=== PATIENT | female | born 1950 | race Caucasian/White ===

== ENCOUNTER 2019-06-06 07:53 | Outpatient (CLI) | payer MEDICARE, OTHER, SELFPAY ==
[2019-06-06 08:32] LABS: Basophils Percent Auto 0.5 % (0.2-1.2); Eosinophils Absolute Auto 0.1 K/mm3 (0-0.3); Eosinophils Percent Auto 0.7 % (0-4.4); Hematocrit 45.2 % (37.0-47.0); Hemoglobin 14.8 g/dL (12.0-15.0); Immature Granulocyte Absolute 0.05 K/mm3 (0.00-0.031); Immature Granulocyte Percent A 0.6 % (0-0.5); Lymphocytes Absolute Auto 2.23 K/mm3 (0.9-3.2); Lymphocytes Percent Auto 25.7 % (18.3-44.2); Mean Corpuscular HGB Conc 32.7 g/dl (32-36); Mean Corpuscular Hemoglobin 28.4 pg (26-34); Mean Corpuscular Volume 86.6 fl (80-100); Mean Platelet Volume 9.5 fl (7.4-10.4); Monocytes Absolute Auto 0.6 K/mm3 (0.1-0.6); Monocytes Percent Auto 7.2 % (2.6-8.5); Neutrophils Absolute Auto 5.7 K/mm3 (1.3-6.7); Neutrophils Percent Auto 65.3 % (45.5-73.1); Platelet Count Result 232 k/mm3 (150-375); Red Blood Count 5.22 M/mm3 (4.2-5.4); Red Cell Distribution Width 12.2 % (11.5-14.5); White Blood Count 8.7 K/mm3 (4.5-10.0)
[2019-06-06 08:38] LABS: Hemoglobin A1C 9.9 % (<5.7)
[2019-06-06 08:40] LABS: Alanine Aminotransferase 17 U/L (4-35); Albumin Level 3.9 g/dL (3.5-5.1); Alkaline Phosphatase 86 U/L (38-126); Aspartate Amino Transferase 17 U/L (14-36); Bilirubin,Total 0.5 mg/dL (0.2-1.3); Blood Urea Nitrogen 17 mg/dL (7-17); Calcium 8.9 mg/dL (8.4-10.2); Carbon Dioxide 24 mmol/L (22-30); Chloride 101 mmol/L (98-107); Cholesterol 186 mg/dL (0-200); Estimated Glomerular Filt Rate > 60; Glucose 224 mg/dL (65-105); HDL Direct 58 mg/dL; Potassium 4.1 mmol/L (3.4-5.0); Sodium 134 mmol/L (137-145); Triglycerides 233 mg/dL (<150)
[2019-06-06 08:52] LABS: LDL Cholesterol Direct 94 mg/dL
[2019-06-06 09:50] LABS: Free T4 Free Thyroxine 1.03 ng/mL (0.78-2.19)
[2019-06-06 13:15] LABS: Creatinine Urine 25.4 mg/dL
[2019-06-06 13:44] LABS: Microalbumin Urine Random < 6.0 mg/L (0-16.7)
== END 2019-06-06 07:54 | disposition home or self-care (01) ==
PROVIDERS: PCP Internal Medicine; Visit Provider Internal Medicine
DX: R53.83 Other fatigue (principal); E11.9 Type 2 diabetes mellitus without complications; R79.89 Other specified abnormal findings of blood chemistry
CPT/HCPCS: 36415; 80053; 80061; 82043; 83036; 84439; 84443; 85025

== ENCOUNTER 2020-10-17 07:48 | Outpatient (CLI) | payer MEDICARE, OTHER, SELFPAY ==
--- NOTE | ~2020-10-17 | DEXA_ITS ---
Bone Density Report Name: Ellie Rivera Age: 70 Sex: Female Ethnicity: White Date of : 1950 Indication: osteopenia; height loss; prior fracture; hysterectomy; postmenopausal Referring Provider: Lien Dugan Study: Bone densitometry was performed. Exam Date: October 17, 2020 Accession number: [id number] Bone Density: Region BMD T-score Z-score Classification AP Spine (L1-L4) 0.975 -0.7 1.3 Normal Femoral Neck (Left) 0.645 -1.8 -0.2 Osteopenia Total Hip (Left) 0.882 -0.5 0.9 Normal Total Hip Bilateral Avg 0.874 -0.6 0.8 Normal Femoral Neck (Right) 0.604 -2.2 -0.5 Osteopenia Total Hip (Right) 0.865 -0.6 0.8 Normal World Health Organization criteria for BMD impression classify patients as: Normal (T-score at or above -1.0), Osteopenia (T-score between -1.0 and -2.5), or Osteoporosis (T-score at or below -2.5). 10-year Fracture Risk(1): Major Osteoporotic Fracture 18% Hip Fracture 3.2% Reported Risk Factors: [place] (), Neck BMD=0.604, BMI=34.8, previous fracture (1) FRAX(R) Version 3.08. Fracture probability calculated for an untreated patient. Fracture probability may be lower if the patient has received treatment. Previous Exams: Region Exam Age BMD T-score BMD Change BMD Change Date g/cm2 vs Baseline vs Previous AP Spine(L1-L4) 10/17/2020 70 0.975 -0.7 0.031(3.3%)# 0.051(5.5%)* 04/08/2015 64 0.924 -1.1 -0.020(-2.1%)# -0.020(-2.1%)# 05/11/2008 57 0.944 -0.9 Total Hip(Left) 10/17/2020 70 0.882 -0.5 0.022(2.5%)# 0.020(2.3%) 04/08/2015 64 0.862 -0.7 0.001(0.1%)# 0.001(0.1%)# 05/11/2008 57 0.861 -0.7 Total Hip(Right) 10/17/2020 70 0.865 -0.6 -0.023(-2.6%)# -0.044(-4.8%)* 04/08/2015 64 0.909 -0.3 0.020(2.3%)# 0.020(2.3%)# 05/11/2008 57 0.889 -0.4 *Denotes significance at 95% confidence level, LSC for AP Spine = 0.022 g/cm2, LSC for Total Hip = 0.027 g/cm2 Clinical Information Provided by Patient: Has had a low trauma fracture Has the following medical conditions: Hysterectomy Patient maximum height was 62.5 Menopause Age: 49 No regular weight bearing exercise Does not regularly consume dairy products Onset of menses at age 16 Number of children 1 Impression: The patient has low bone mass, based on the Right Femoral Neck T-score. The patient has an estimated ten-year risk of hip fracture of 3.2% and an estimated ten-year risk of major fracture of 18%, based on
== END 2020-10-17 07:49 | disposition home or self-care (01) ==
LOC: ANHIMG 07:50
PROVIDERS: PCP Internal Medicine; Visit Provider Internal Medicine Endocrinology, Diabetes & Metabolism
DX: M81.0 Age-related osteoporosis without current pathological fracture (principal); E11.65 Type 2 diabetes mellitus with hyperglycemia; M85.852 Other specified disorders of bone density and structure, left thigh; M85.851 Other specified disorders of bone density and structure, right thigh
CPT/HCPCS: 77080

== ENCOUNTER 2020-10-22 07:10 | Outpatient (CLI) | payer MEDICARE, OTHER, SELFPAY ==
[2020-10-22 07:43] LABS: Alanine Aminotransferase 20 U/L (4-35); Albumin Level 4.1 g/dL (3.5-5.1); Alkaline Phosphatase 69 U/L (38-126); Anion Gap 9 mmol/L (8-16); Aspartate Amino Transferase 20 U/L (14-36); Bilirubin,Total 0.5 mg/dL (0.2-1.3); Blood Urea Nitrogen 21 mg/dL (7-17); Calcium 9.2 mg/dL (8.4-10.2); Carbon Dioxide 26 mmol/L (22-30); Chloride 101 mmol/L (98-107); Cholesterol 175 mg/dL (0-200); Estimated Glomerular Filt Rate > 60; Glucose 187 mg/dL (65-110); HDL Direct 60 mg/dL; Potassium 4.7 mmol/L (3.4-5.0); Sodium 136 mmol/L (137-145); Triglycerides 234 mg/dL (<150)
[2020-10-22 07:54] LABS: LDL Cholesterol Direct 66 mg/dL
[2020-10-22 08:17] LABS: Parathyroid Intact 54.6 pg/mL (7.5-53.5)
[2020-10-22 08:41] LABS: Vitamin D 25 Hydroxy 32.4 ng/mL
[2020-10-22 09:20] LABS: Creatinine Urine 59.8 mg/dL
[2020-10-22 13:47] LABS: MALB Creatinine Ratio < 10.0 mg/g (0-30); Microalbumin Urine Random < 6.0 mg/L (0-16.7)
== END 2020-10-22 07:11 | disposition home or self-care (01) ==
LOC: ANHLAB 07:12
PROVIDERS: PCP Internal Medicine; Visit Provider Internal Medicine Endocrinology, Diabetes & Metabolism
DX: E11.65 Type 2 diabetes mellitus with hyperglycemia (principal); E78.1 Pure hyperglyceridemia; M81.0 Age-related osteoporosis without current pathological fracture
CPT/HCPCS: 36415; 80053; 80061; 82043; 82306; 82607; 83970; 84443

== ENCOUNTER 2021-07-18 14:47 | Outpatient (CLI) | payer MEDICARE, OTHER, SELFPAY ==
[2021-07-18 15:30] LABS: Albumin Level 3.9 g/dL (3.5-5.1); Anion Gap 7 mmol/L (8-16); Blood Urea Nitrogen 20 mg/dL (7-17); Calcium 9.2 mg/dL (8.4-10.2); Carbon Dioxide 27 mmol/L (22-30); Chloride 100 mmol/L (98-107); Estimated Glomerular Filt Rate > 60; Glucose 224 mg/dL (65-110); Phosphorus 4.5 mg/dL (2.5-4.5); Potassium 4.4 mmol/L (3.4-5.0); Sodium 134 mmol/L (137-145)
[2021-07-18 15:41] LABS: Parathyroid Intact 37.2 pg/mL (7.5-53.5)
== END 2021-07-18 14:48 | disposition home or self-care (01) ==
PROVIDERS: PCP Internal Medicine; Visit Provider Internal Medicine Endocrinology, Diabetes & Metabolism
DX: R79.89 Other specified abnormal findings of blood chemistry (principal); M81.0 Age-related osteoporosis without current pathological fracture
CPT/HCPCS: 36415; 80069; 82306; 83970

== ENCOUNTER 2021-11-28 14:23 | Outpatient (CLI) | payer MEDICARE, OTHER, SELFPAY ==
[2021-11-28 14:46] LABS: Basophils Percent Auto 0.4 % (0.2-1.2); Eosinophils Absolute Auto 0.1 K/mm3 (0-0.3); Eosinophils Percent Auto 0.9 % (0-4.4); Hematocrit 43.7 % (37.0-47.0); Hemoglobin 14.6 g/dL (12.0-15.0); Immature Granulocyte Absolute 0.04 K/mm3 (0.00-0.031); Immature Granulocyte Percent A 0.4 % (0-0.5); Lymphocytes Absolute Auto 3.92 K/mm3 (0.9-3.2); Mean Corpuscular HGB Conc 33.4 g/dl (32-36); Mean Corpuscular Hemoglobin 28.8 pg (26-34); Mean Corpuscular Volume 86.2 fl (80-100); Mean Platelet Volume 9.2 fl (7.4-10.4); Monocytes Absolute Auto 0.6 K/mm3 (0.1-0.6); Monocytes Percent Auto 6.5 % (2.6-8.5); Neutrophils Absolute Auto 5.1 K/mm3 (1.3-6.7); Neutrophils Percent Auto 51.8 % (45.5-73.1); Platelet Count Result 230 k/mm3 (150-375); Red Blood Count 5.07 M/mm3 (4.2-5.4); Red Cell Distribution Width 12.8 % (11.5-14.5); White Blood Count 9.8 K/mm3 (4.5-10.0)
[2021-11-28 14:58] LABS: Alanine Aminotransferase 23 U/L (6-35); Albumin Level 4.3 g/dL (3.5-5.1); Alkaline Phosphatase 69 U/L (38-126); Anion Gap 11 mmol/L (8-16); Aspartate Amino Transferase 21 U/L (14-36); Bilirubin,Total 0.5 mg/dL (0.2-1.3); Blood Urea Nitrogen 18 mg/dL (7-17); Calcium 9.6 mg/dL (8.4-10.2); Carbon Dioxide 25 mmol/L (22-30); Chloride 101 mmol/L (98-107); Cholesterol 166 mg/dL (0-200); Estimated Glomerular Filt Rate > 60; Glucose 196 mg/dL (65-110); HDL Direct 60 mg/dL; Potassium 4.2 mmol/L (3.4-5.0); Sodium 137 mmol/L (137-145); Triglycerides 336 mg/dL (<150)
[2021-11-28 15:09] LABS: LDL Cholesterol Direct 63 mg/dL
[2021-11-28 15:22] LABS: Vitamin D 25 Hydroxy 23.8 ng/mL
[2021-11-28 16:01] LABS: Folic Acid 15.6 ng/mL (2.76->20)
== END 2021-11-28 14:24 | disposition home or self-care (01) ==
PROVIDERS: PCP Internal Medicine; Visit Provider Internal Medicine
DX: E53.8 Deficiency of other specified B group vitamins (principal); E11.65 Type 2 diabetes mellitus with hyperglycemia; R79.89 Other specified abnormal findings of blood chemistry; R53.83 Other fatigue; B37.3 Candidiasis of vulva and vagina; M81.0 Age-related osteoporosis without current pathological fracture
CPT/HCPCS: 36415; 80053; 80061; 82306; 82607; 82746; 84443; 85025

== ENCOUNTER 2021-11-29 08:06 | Outpatient (CLI) | payer MEDICARE, OTHER, SELFPAY ==
[2021-11-29 09:27] LABS: Creatinine Urine 53.5 mg/dL
[2021-11-29 09:28] LABS: MALB Creatinine Ratio < 11.2 mg/g (0-30); Microalbumin Urine Random < 6.0 mg/L (0-16.7)
== END 2021-11-29 08:07 | disposition home or self-care (01) ==
PROVIDERS: PCP Internal Medicine; Visit Provider Internal Medicine
DX: E53.8 Deficiency of other specified B group vitamins (principal); E11.65 Type 2 diabetes mellitus with hyperglycemia; R79.89 Other specified abnormal findings of blood chemistry; R53.83 Other fatigue
CPT/HCPCS: 82043

== ENCOUNTER 2022-05-16 14:48 | Outpatient (CLI) | payer MEDICARE, OTHER, SELFPAY ==
--- NOTE | ~2022-05-16 | MM_ITS ---
EXAMINATION: MM screening nelson BI w renetta HISTORY: Screening mammogram TECHNIQUE: Craniocaudal and mediolateral oblique 3-D tomosynthesis images were obtained and synthetic 2-D images were generated. CAD analysis was submitted and interpreted. COMPARISON: 02/2018, 04/08/2015 bilateral screening mammogram examinations BREAST PARENCHYMAL COMPOSITION: The breasts are almost entirely fatty. FINDINGS: There is no evidence of suspicious mass, calcification, or architectural distortion to sugg est malignancy in either breast. There has been no suspicious interval change. IMPRESSION: 1. No mammographic evidence of malignancy. 2. Recommend routine screening mammography in one year. BI-RADS Category 1: Negative Reviewed, dictated and finalized at location A. [employer]UPATIONAL
== END 2022-05-16 14:49 | disposition home or self-care (01) ==
LOC: ANHIMG 14:50
PROVIDERS: PCP Internal Medicine; Visit Provider Internal Medicine
DX: Z12.31 Encounter for screening mammogram for malignant neoplasm of breast (principal)
CPT/HCPCS: 77063; 77067

== ENCOUNTER 2022-12-24 06:48 | Outpatient (CLI) | payer MEDICARE, OTHER, SELFPAY ==
[2022-12-24 07:24] LABS: Basophils Percent Auto 0.5 % (0.2-1.2); Eosinophils Absolute Auto 0.1 K/mm3 (0-0.3); Eosinophils Percent Auto 1.2 % (0-4.4); Hematocrit 44.4 % (37.0-47.0); Hemoglobin 14.2 g/dL (12.0-15.0); Immature Granulocyte Absolute 0.04 K/mm3 (0.00-0.031); Immature Granulocyte Percent A 0.5 % (0-0.5); Lymphocytes Absolute Auto 2.92 K/mm3 (0.9-3.2); Lymphocytes Percent Auto 33.1 % (18.3-44.2); Mean Corpuscular Hemoglobin 28.9 pg (26-34); Mean Corpuscular Volume 90.4 fl (80-100); Mean Platelet Volume 9.1 fl (7.4-10.4); Monocytes Absolute Auto 0.6 K/mm3 (0.1-0.6); Monocytes Percent Auto 6.8 % (2.6-8.5); Neutrophils Absolute Auto 5.1 K/mm3 (1.3-6.7); Neutrophils Percent Auto 57.9 % (45.5-73.1); Platelet Count Result 224 k/mm3 (150-375); Red Blood Count 4.91 M/mm3 (4.2-5.4); Red Cell Distribution Width 12.6 % (11.5-14.5); White Blood Count 8.8 K/mm3 (4.5-10.0)
[2022-12-24 07:32] LABS: Alanine Aminotransferase 17 U/L (6-35); Alkaline Phosphatase 67 U/L (38-126); Anion Gap 6 mmol/L (8-16); Aspartate Amino Transferase 19 U/L (14-36); Bilirubin,Total 0.6 mg/dL (0.2-1.3); Blood Urea Nitrogen 23 mg/dL (7-17); Carbon Dioxide 26 mmol/L (22-30); Chloride 102 mmol/L (98-107); Cholesterol 180 mg/dL (0-200); Estimated Glomerular Filt Rate > 60; Glucose 178 mg/dL (65-110); HDL Direct 66 mg/dL; Potassium 4.3 mmol/L (3.4-5.0); Sodium 134 mmol/L (137-145); Triglycerides 241 mg/dL (<150)
[2022-12-24 07:44] LABS: LDL Cholesterol Direct 77 mg/dL
[2022-12-24 08:12] LABS: Vitamin D 25 Hydroxy 25.7 ng/mL
== END 2022-12-24 06:49 | disposition home or self-care (01) ==
PROVIDERS: PCP Internal Medicine; Visit Provider Internal Medicine Endocrinology, Diabetes & Metabolism
DX: E11.65 Type 2 diabetes mellitus with hyperglycemia (principal); E53.8 Deficiency of other specified B group vitamins; E55.9 Vitamin D deficiency, unspecified; E78.1 Pure hyperglyceridemia; E78.5 Hyperlipidemia, unspecified; R53.83 Other fatigue; Z68.34 Body mass index [BMI] 34.0-34.9, adult
CPT/HCPCS: 36415; 80053; 80061; 82306; 82607; 84443; 85025

== ENCOUNTER 2023-01-08 11:22 | Outpatient (CLI) | payer MEDICARE, OTHER, SELFPAY ==
--- NOTE | ~2023-01-08 | XR_ITS ---
EXAMINATION: XR lumbar spine 6V w bending DATE: 01/08/2023 11:58 INDICATION: Unspecified fall, initial encounter. TECHNIQUE: 6 views of lumbar spine including standing views and flexion and extension views were obta ined. COMPARISON: None. FINDINGS: There is 10 degrees levoscoliosis of thoracolumbar spine. There is mild chronic anterior we dging of T11 and L1 vertebral bodies. There is 5 mm anterolisthesis of L4 on L5. There is mildly decr eased disc height at L1-L2, L2-L3, and L3-L4. There is no abnormal motion with flexion or extension. There is multilevel facet joint osteoarthritis, severe bilaterally at L4-L5 and L5-S1. There are brid ging endplate osteophytes at multiple levels in the thoracic spine, consistent with diffuse idiopathi c skeletal hyperostosis (DISH). IMPRESSION: 1. Mild lumbar spondylosis. 2. Thoracolumbar levoscoliosis. 3. Thoracic DISH. Reviewed, dictated and finalized at location E.
--- NOTE | ~2023-01-08 | XR_ITS ---
XR wrist LT min 3V DATE: 01/08/2023 11:58 INDICATION: Fall. Left wrist injury. TECHNIQUE: 4 views COMPARISON: None FINDINGS: Intramedullary pin of the radius. There is old healed fracture deformity of the distal radi al diametaphyseal area and ununited old ulnar styloid process fracture. No recent fracture or dislocation, periosteal reaction or bone destruction is detected. There is osteopenia. IMPRESSION: Old healed fracture of distal radial diametaphysis, with intramedullary fixation pin Old ununited ulnar styloid process fracture Osteopenia Reviewed, dictated and finalized at location A. IMPRESSION: Old healed fracture of distal radial diametaphysis, with intramedul lynsey fixation pin Old ununited ulnar styloid process fracture Osteopenia
== END 2023-01-08 11:23 | disposition home or self-care (01) ==
PROVIDERS: PCP Internal Medicine; Visit Provider Physician Assistant
DX: M43.06 Spondylolysis, lumbar region (principal); M41.85 Other forms of scoliosis, thoracolumbar region; M48.14 Ankylosing hyperostosis [Forestier], thoracic region; W19.XXXA Unspecified fall, initial encounter
CPT/HCPCS: 72114; 73110

== ENCOUNTER 2023-06-13 08:12 | Outpatient (CLI) | payer MEDICARE, OTHER, SELFPAY ==
--- NOTE | ~2023-06-13 | XR_ITS ---
EXAMINATION: XR shoulder RT min 2V INDICATION: Right shoulder pain TECHNIQUE: Four views of the right shoulder are submitted. COMPARISON: None FINDINGS: Normal alignment. No fracture. There is mild glenohumeral and acromioclavicular joint osteo arthritis. Soft tissues are unremarkable. IMPRESSION: 1. No acute osseous abnormality. Reviewed, dictated and finalized at location F.
== END 2023-06-13 08:13 | disposition home or self-care (01) ==
LOC: ANHIMG 08:15
PROVIDERS: PCP Physician Assistant; Visit Provider Physician Assistant
DX: M25.511 Pain in right shoulder (principal)
CPT/HCPCS: 73030

== ENCOUNTER 2023-08-08 08:49 | Outpatient (CLI) | payer MEDICARE, OTHER, SELFPAY ==
--- NOTE | ~2023-08-08 | MR_ITS ---
EXAMINATION: MR shoulder RT wo con DATE: 08/08/2023 15:53 INDICATION: Torn right rotator cuff TECHNIQUE: Magnetic resonance imaging (MRI) of the right shoulder was performed without intravenous c ontrast. Sequences included axial PD-weighted FS FSE, coronal oblique PD-weighted FS FSE, coronal obl ique T2-weighted FS FSE, sagittal PD-weighted FS FSE, and sagittal T1-weighted SE. COMPARISON: None. FINDINGS: Coracoacromial arch: The acromion undersurface is curved in morphology (type II). Small anterior subacromial spur at the a cromial insertion of the normal coracoacromial ligament. Moderate acromioclavicular osteoarthritis. Rotator cuff: Moderate supraspinatus tendinopathy. There is moderate attenuation of the distal 2 cm of the supraspi natus tendon with partial thickness undersurface tear. There is a superimposed very small full-thickn ess tear measuring 3 mm AP and <5 mm medial to lateral along the central aspect of the superior facet footplate. Moderate infraspinatus tendinopathy without tear. The teres minor tendon is normal. Mild to moderate subscapularis tendinopathy without tear. Normal rotator cuff muscle bulk and signal. Biceps tendon, glenoid labrum and glenohumeral cartilage: Mild tendinopathy of the intra-articular portion of the long head biceps tendon without discrete tear . There is a superior, anterior to posterior tear of the glenoid labrum (SLAP tear) involving the 12: 00-9:00 position of the posterosuperior glenoid labrum. Glenohumeral cartilage is normal. Fluid: Physiologic amount of fluid in the glenohumeral joint and biceps tendon sheath. No loose osteochondr al bodies. Small amount of fluid in the subacromial/subdeltoid bursa consistent with mild bursitis. Bones: Normal marrow signal with no edema, fracture or abnormal marrow replacing process. IMPRESSION: 1. Moderate supraspinatus tendinopathy with small moderate severity partial-thickness articular sided tear and superimposed very small full-thickness component at the superior facet footplate. 2. Mild to moderate subscapularis and mild infraspinatus tendinopathy without tear. 3. SLAP tear of the superior to posterosuperior glenoid labrum. 4. Mild subacromial/subdeltoid bursitis. 5. Moderate acromioclavicular osteoarthritis. 6. Mild tendinopathy without tear of the intra-articular long head biceps tendon. Reviewed, dictated and finalized at location A. IMPRESSION: 1. Moderate supraspinatus tendinopathy with small moderate severity partial-thi ckness articular sided tear and superimposed very small full-thickness componen t at the superior facet footplate. 2. Mild to moderate subscapularis and mild infraspinatus tendinopathy without t ear. 3. SLAP tear of the superior to posterosuperior glenoid labrum. 4. Mild subacromial/subdeltoid bursitis. 5. Moderate acromioclavicular osteoarthritis. 6. Mild tendinopathy without tear of the intra-articular long head biceps tendo n.
== END 2023-08-08 08:50 | disposition home or self-care (01) ==
PROVIDERS: PCP Physician Assistant; Visit Provider Specialist
DX: M75.101 Unspecified rotator cuff tear or rupture of right shoulder, not specified as traumatic (principal); M75.51 Bursitis of right shoulder; M19.011 Primary osteoarthritis, right shoulder
CPT/HCPCS: 73221

== ENCOUNTER 2023-10-08 15:00 | Outpatient (RCR) | payer MEDICARE, OTHER, SELFPAY ==
[2023-09-09 11:00] VITALS: BP_SYST 95
--- NOTE | 2023-09-09 11:56 | OPREHPOC ---
Outpatient Therapy Plan of Care This is a Multidisciplinary Plan of Care that may contain components documented by all disciplines (PT, OT, and ST.) PT Problem 1 PT Problem #1 Knowledge Deficit PT Goal 1 Goal *indep with HEP Target Visit 8 PT Problem 2 PT Problem #2 Pain PT Goal 1 Goal 1* pt report pain rating of 7/10 at worst 2* Quick DASH self assessment of 46% limitation in activity level 3* pt report with sleeping, awaken 2x/night due to pain Target Visit 8 PT Problem 3 PT Problem #3 Impaired Strength PT Goal 1 Goal increase strength of R shoulder, to improve use of R arm with self care and work tasks: in standing, 5 reps: 1* flexion to 145' 2* abduction to 120' 3* IR- fingers to bra strap Target Visit 8
--- NOTE | 2023-09-09 11:56 | PTOPEVAL1 ---
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 Her Quick DASH self assessment is 55% limitation in activity level. Sleep and use of her dominant arm are limited due to pain. With the evaluation: R shoulder ROM and strength are decreased, with abduction and extension most painful motion. spasms and tenderness with palpation over anterior and lateral shoulder; posture with rounded shoulders. Skilled PT services are indicated for modalities to decrease pain and spasms, therapeutic exercises to increase shoulder ROM and strength, with eduation for HEP and posture correction. Plan of Care Interventions Electrical Stimulation,Hot Pack/Cold Pack,Manual Therapy,Neuro Re-education,Patient Education,Therapeutic Activities,Therapeutic Exercise,Ultrasound,Other Other Interventions shirley, NIMISHAT
--- NOTE | 2023-09-25 14:48 | PCPTNOTE ---
Called and canceled, reason unknown. AKS
--- NOTE | 2023-10-03 12:54 | PCPTNOTE ---
Pt canceled due to illness.
--- NOTE | 2023-10-10 15:07 | PCPTNOTE ---
Pt canceled appt due to be stuck at the [facility] office.
--- NOTE | 2023-10-14 15:53 | PCPTNOTE ---
pt did not show for today's reevaluation appt. I called her---stated she thought it was tomorrow. She has 3 more visits left, she will call and reschedule.
--- NOTE | 2023-10-31 13:29 | PTOPDC ---
Assessment and note entered by Florentin Cheung Discharge Report Assessment Status Discharge - Pt Not Present Diagnosis R rotator cuff tear Onset March 2023 Subjective Information pt was not seen this date Assessment PT Clinical Summary Ellie received 4 PT sessions, from September 08 to October 07. She did not show for one and called/canceled 3 appointments. Discharge PT services. The goals were not addressed. Plan of Care PT Services Indicated No
== END 2023-10-31 16:54 | disposition home or self-care (01) ==
LOC: ANHPT 15:00
PROVIDERS: PCP Physician Assistant; Visit Provider Specialist
DX: M75.101 Unspecified rotator cuff tear or rupture of right shoulder, not specified as traumatic (principal)
CPT/HCPCS: 97014; 97110; 97140; 97161; 97530; G0283

== ENCOUNTER 2024-02-20 07:00 | Outpatient (CLI) | payer MEDICARE, OTHER, SELFPAY ==
[2024-02-20 08:21] LABS: Alanine Aminotransferase 13 U/L (6-35); Albumin Level 4.2 g/dL (3.5-5.1); Alkaline Phosphatase 70 U/L (38-126); Anion Gap 8 mmol/L (4-12); Aspartate Amino Transferase 19 U/L (14-36); Bilirubin,Total 0.8 mg/dL (0.2-1.3); Blood Urea Nitrogen 23 mg/dL (7-17); Calcium 8.9 mg/dL (8.4-10.2); Carbon Dioxide 26 mmol/L (22-30); Chloride 102 mmol/L (98-107); Cholesterol 192 mg/dL (0-200); Estimated Glomerular Filt Rate > 60; Glucose 146 mg/dL (65-110); HDL Direct 69 mg/dL; Potassium 4.5 mmol/L (3.4-5.0); Sodium 136 mmol/L (137-145); Triglycerides 139 mg/dL (<150)
[2024-02-20 08:33] LABS: LDL Cholesterol Direct 82 mg/dL
[2024-02-20 09:48] LABS: Creatinine Urine 58.5 mg/dL
[2024-02-20 10:02] LABS: MALB Creatinine Ratio < 10.3 mg/g (0-30); Microalbumin Urine Random < 6.0 mg/L (0-16.7)
[2024-02-20 10:03] LABS: Free T4 Free Thyroxine 1.28 ng/dL (0.78-2.19); Vitamin D 25 Hydroxy 25.6 ng/mL
== END 2024-02-20 07:01 | disposition home or self-care (01) ==
PROVIDERS: PCP Nurse Practitioner; Visit Provider Nurse Practitioner Family
DX: E11.65 Type 2 diabetes mellitus with hyperglycemia (principal); E53.8 Deficiency of other specified B group vitamins; E55.9 Vitamin D deficiency, unspecified; E78.1 Pure hyperglyceridemia; E78.5 Hyperlipidemia, unspecified
CPT/HCPCS: 36415; 80053; 80061; 82043; 82306; 82607; 84439; 84443

== ENCOUNTER 2024-03-30 13:30 | Outpatient (RCR) | payer MEDICARE, OTHER, SELFPAY ==
[2024-02-20 09:55] VITALS: BP_SYST 95
--- NOTE | 2024-02-20 10:48 | OPREHPOC ---
Outpatient Therapy Plan of Care This is a Multidisciplinary Plan of Care that may contain components documented by all disciplines (PT, OT, and ST.) PT Problem 1 PT Problem #1 Knowledge Deficit PT Goal 1 Goal / Goal Update *indep with HEP Target Visit 10 PT Goal 2 Goal / Goal Update * correct position of shoulder with exercises Target Visit 10 PT Problem 2 PT Problem #2 Pain PT Goal 1 Goal / Goal Update * pain rating at worst of 2/10 with increased activity Target Visit 10 PT Goal 2 Goal / Goal Update * pt report sleeping 5 hours/time Target Visit 10 PT Problem 3 PT Problem #3 Impaired Range of Motion PT Goal 1 Goal / Goal Update increase R shoulder ROM to improve use of R arm for home and self care tasks: 1* flexion 150' 2* abduction 130' 3* IR- reach behind back, palm to waist Target Visit 10 PT Problem 4 PT Problem #4 Impaired Strength PT Goal 1 Goal / Goal Update progress strengthening per dr orders: increase R shoulder strength for return to full work and home tasks: perform in standing 5 reps: 1* flexion to 90' with 3# hand wt 2* abduction to 90' with 2# hand wt 3* elbow flexion/extension with 5# hand wt Target Visit 10
--- NOTE | 2024-02-20 10:48 | PTOPEVAL1 ---
Assessment and note entered by Chasidy Drake, PT Evaluation Information Assessment Status Evaluation Diagnosis massive R rotator cuff repair ICD-10 Condition Codes (PT) M25.511,Weakness R53.1,Z47.89 Onset 01-06-24 Subjective Information after surgery, used sling, now only PRN use when in public; saw yesterday, he was pleased with her shoulder; dr told her light lifting/use of R arm- coffee cup only with R arm; R hand dominant; currently not working; works at hospital, in cardiology doing stress tests--light lifting; Reported Pain Level Pain Score Self Report Additional Pain Score Comments pain range the past few days 0-3/10; ache in anterior shoulder and humerus increase pain: using arm with light home tasks decrease pain: rest arm, support arm, biofreeze, aleve PRN not using ice sleeping -2-4 hours at time; tends to sleep on her L side with support to R arm at her trunk; and head of bed elevated Assessment PT Clinical Summary Ellie is s/p R massive rotator cuff repair on 01-05. She is R hand dominant. 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 Quick DASH rating of 48% limitation in activity level. Her PT order is -2-26 for PROM; she saw the yesterday and he was pleased with her shoulder and told her to start doing more in therapy. But, she did not have an updated order. Will contact dr office to clarify protocol for treatment. With the evaluation: she is doing well with her active and PROM of R shoulder; tolerated the supine stretching and did not report any pain at end of session. Skilled PT services are indicated for modalities PRN for pain control, therapeutic exercises to increase R shoulder ROM and strength per protocol/orders. Plan of Care Interventions Electrical Stimulation,Hot Pack/Cold Pack,Manual Therapy,Neuro Re-education,Patient Education,Therapeutic Activities,Therapeutic Exercise,Ultrasound,Other Other Interventions taping PT Services Indicated Yes Treatment Frequency and 1-2x/wk for 10 visits Duration These treatments will address the objective and functional deficits as defined above. The patient will be advanced safely and appropriately in order for the patient to progress towards his/her prior level of function. Additional exercises will be introduced and as well as a comprehensive home exercise program upon discharge, if needed, ?to ensure carryover of functional gains achieved in the clinic. This treatment plan has been reviewed and agreement upon by the patient.
--- NOTE | 2024-02-20 14:17 | PCPTNOTE ---
faxed request to Dr Jean, to clarify pt's PT protocol. Her order is dated 01-26-24 for PROM. She reports seeing the dr yesterday, but did not get a new order for PT.
--- NOTE | 2024-02-27 15:49 | PCPTNOTE ---
received verbal orders per phone: progression of shoulder strengthening with therapy as tolerated; no limitations in activity/ROM. Faxed order to for signature of this.
--- NOTE | 2024-03-13 15:53 | PCPTNOTE ---
pt called and canceled due to illness.
--- NOTE | 2024-03-19 15:11 | PCPTNOTE ---
pt did not show for today's appt. Called her and she was not feeling well, and slept through her appt time. Rescheduled reeval for Mar 30. She is to continue with her exercises at home.
--- NOTE | 2024-03-30 14:13 | PTOPDC ---
Assessment and note entered by Chasidy Drake, PT Assessment Status Discharge Diagnosis massive R rotator cuff repair ICD-10 Condition Codes (PT) Pain in right shoulder M25.511,Weakness R53.1, Encounter for other orthopedic aftercare Z47.89 Onset 01-06-24 Subjective Information have gone back to work; doing more and sleeping is better; doing all of the exercises at home; only thing that she is not doing is heavy lifting-- and family assist; feel like ready to be done with therapy, will keep up the exercises at home. Return to the dr Apr 20. Reported Pain Level Pain Score Self Report Additional Pain Score Comments pain range in the past week 0-2/10; decrease pain: pendulum exercises am able to sleep 4-5 hours/time Assessment PT Clinical Summary Ellie has received 8 PT sessions. Compared to the initial evaluation, she has improved in all areas: now have: pain rating of 0 -2/10; self assessment Quick DASH rating of 23% limitation in activity level; reported sleeping tolerance of 4-5 hours at a time; has returned to work; Active ROM in standing: R shoulder flexion 140', abduction 145', IR- reach behind back, fingers to sacrum; ER- reaching to back of head, fingers to cervical spine; Strength in standing R UE x 5 reps: flexion to 90' with 3# hand wt; abduction to 80' with 2# hand wt elbow flexion/extension 5# hand weight. Education completed for HEP and posture. The goals were partially met. Discharge PT. She is to continue with her HEP and monitor her pain with more activity. Plan of Care PT Services Indicated No
== END 2024-03-30 15:28 | disposition home or self-care (01) ==
LOC: ANHPT 13:30
PROVIDERS: PCP Nurse Practitioner; Visit Provider Physical Therapist
DX: M25.511 Pain in right shoulder (principal); R53.1 Weakness; Z47.89 Encounter for other orthopedic aftercare
CPT/HCPCS: 97110; 97161; 97530

== ENCOUNTER 2025-01-19 06:55 | Outpatient (CLI) | payer MEDICARE, OTHER, SELFPAY ==
[2025-01-19 08:53] LABS: Alanine Aminotransferase 20 U/L (6-35); Albumin Level 4.6 g/dL (3.5-5.1); Alkaline Phosphatase 56 U/L (38-126); Anion Gap 13 mmol/L (4-12); Aspartate Amino Transferase 28 U/L (14-36); Bilirubin,Total 0.7 mg/dL (0.2-1.3); Calcium 9.6 mg/dL (8.4-10.2); Carbon Dioxide 19 mmol/L (22-30); Chloride 105 mmol/L (98-107); Cholesterol 127 mg/dL (0-200); Glucose 155 mg/dL (65-110); HDL Direct 59 mg/dL; Sodium 137 mmol/L (137-145); Total Protein 7.8 g/dL (6.3-8.2); Triglycerides 194 mg/dL (<150)
[2025-01-19 09:08] LABS: Blood Urea Nitrogen 30 mg/dL (7-17); Estimated Glomerular Filt Rate 38; Potassium 4.2 mmol/L (3.4-5.0)
[2025-01-19 09:31] LABS: Thyroid Stimulating Hormone 2.560 uIU/mL (0.465-4.680)
[2025-01-19 09:51] LABS: Vitamin B12 260.0 pg/mL (239-931)
[2025-01-19 10:08] LABS: MALB Creatinine Ratio 289.3 mg/g (0-30)
== END 2025-01-19 06:56 | disposition home or self-care (01) ==
PROVIDERS: PCP Internal Medicine; Visit Provider Internal Medicine Endocrinology, Diabetes & Metabolism
DX: E78.1 Pure hyperglyceridemia (principal); E11.65 Type 2 diabetes mellitus with hyperglycemia; E78.5 Hyperlipidemia, unspecified; E53.8 Deficiency of other specified B group vitamins; E55.9 Vitamin D deficiency, unspecified; M81.0 Age-related osteoporosis without current pathological fracture
CPT/HCPCS: 36415; 80053; 80061; 82043; 82306; 82607; 84443

== ENCOUNTER 2025-01-21 09:55 | Outpatient (CLI) | payer MEDICARE, OTHER, SELFPAY ==
--- OUTSIDE RECORDS SUMMARY | 2002-03-06 09:15 | XMS_ITS | Continuity of Care Document ---
Author Organization [facility] Address [address] [facility], [place] [address] [place] [address] Phone Care Team Providers Care Food Selector Name Role Phone Chirag Penny Unavailable Unavailable Advance Directives Directive Yes / No Effective Date File Name No Information Encounters Encounter Description Practice Location Reason(s) For Visit Diagnoses Date Provider Providers Copied on Encounter [facility], [address], [place], [place], [id number], [place] tel:[phone] [facility] No Information Dec-2 0-200 2 Doisy Edward. [address] , [address], [place], [address], [place]. tel:[phone] Family History Family Member Type Diagnosis Age At Onset No Information Payers Payer name Insurance type Covered libertarian ID Authoriza tion(s) No Information Social History Type Description Quantity Date Captured Comments Sex Female Smoking Status No Information Chief Complaint And Reason For Visit No Information Reason For Referral Reason For Referral No Information History Of Present Illness Encounter Date Complaint History Of Prese nt Illness No Information Functional Status Date Functional Assessmen t No Information Instructions Date Instruction Additional Infor mation No Information Assessments Type Assessment Date No Information Patient Care Teams Name Effective Dates (start - stop) Status Members No Information
--- NOTE | ~2025-01-21 | DEXA_ITS ---
Bone Density Report Name: JESICA WORKMAN Age: 74 Sex: Female Ethnicity: White Date of : 1950 Indication: postmenopausal; screening for osteoporosis; prior fracture; hysterectomy; Referring Provider: SANDEEP MONTENEGRO Study: Bone densitometry was performed. Exam Date: January 21, 2025 Accession number: [id number] Bone Density: Region BMD T-score Z-score Classification AP Spine(L1-L4) 1.039 -0.1 2.2 Normal Femoral Neck (Left) 0.609 -2.2 -0.2 Osteopenia Total Hip (Left) 0.871 -0.6 1.0 Normal Femoral Neck (Right) 0.601 -2.2 -0.3 Osteopenia Total Hip (Right) 0.819 -1.0 0.6 Normal Total Hip Mean 0.845 -0.8 0.8 Normal World Health Organization criteria for BMD impression classify patients as: Normal (T-score at or above -1.0), Osteopenia (T-score between -1.0 and -2.5), or Osteoporosis (T-score at or below -2.5). 10-year Fracture Risk(1): Major Osteoporotic Fracture 20% Hip Fracture 4.3% Reported Risk Factors: [place] (), Neck BMD=0.609, BMI=30.5, previous fracture (1) FRAX(R) Version 3.08. Fracture probability calculated for an untreated patient. Fracture probability may be lower if the patient has received treatment. Previous Exams: Region Exam Age BMD T-score BMD Change BMD Change Date g/cm2 vs Baseline vs Previous AP Spine (L1-L4) 01/21/2025 74 1.039 -0.1 0.114 (12.3%)* 0.064 (6.5%)* 10/17/2020 70 0.975 -0.7 0.051 (5.5%)* 0.051 (5.5%)* 04/08/2015 64 0.924 -1.1 Total Hip(Left) 01/21/2025 74 0.871 -0.6 0.009 (1.0%) -0.011 (-1.3%) 10/17/2020 70 0.882 -0.5 0.020 (2.3%) 0.020 (2.3%) 04/08/2015 64 0.862 -0.7 Total Hip(Right) 01/21/2025 74 0.819 -1.0 -0.090 (-9.9%) -0.046 (-5.4%) 10/17/2020 70 0.865 -0.6 -0.044 (-4.8%) -0.044 (-4.8%) 04/08/2015 64 0.909 -0.3 *Denotes significance at 95% confidence level, LSC for AP Spine = 0.022 g/cm2, LSC for Total Hip = 0.027 g/cm2 Clinical Information Provided by Patient: Has had a low trauma fracture Has used the following medications: Vitamin D Has the following medical conditions: Hysterectomy Patient maximum height was 62 Menopause Age: 49 No regular weight bearing exercise Drinks caffeinated beverages Onset of menses at age 14 Number of children 1 Missed period for more than 6 months in a row Impression: The patient has low bone mass, based on the Left Femoral Neck T-score. The patient has an estimated ten-year risk of hip fracture of 4.3% and an estimated ten-year risk of major fracture of 20%, based on the WHO FRAX algorithm. The patient has risk factors, including: previous fracture. The BMD for the Total Hip(Right) decreased, changing by -5.4% since the last DXA exam. Discussion: BONE DENSITY IS LOW AT ONE OR MORE SKELETAL SITES. THE PATIENT'S BMD AND CLINICAL RISK FACTORS CONTRIBUTE TO THIS PATIENT'S HIGH RISK OF FRACTURE. This patient's lowest T-score is low at one or more skeletal sites. It meets the World Health Organization's (WHO) criteria for ?low bone mass? (T-score between -1.0 and -2.5). The patient's 10-year risk of hip fracture and 10 year risk of a major osteoporotic fracture as calculated by FRAX exceeds the threshold where pharmacological therapy is recommended by the National Osteoporosis Foundation (NOF). However, all treatment decisions require clinical judgment and consideration of individual patient factors, including patient preferences, comorbidities, previous drug use, risk factors not captured in the FRAX model (e.g., frailty, falls, vitamin D deficiency, increased bone turnover, interval significant decline in bone density) and possible under or overestimation of fracture risk by FRAX. The patient should follow a healthful lifestyle (good nutrition with adequate calcium and vitamin D, and appropriate weight-bearing exercise). Follow-Up: Consider a repeat BMD and Vertebral Fracture Assessment (VFA) exam in 2 years or sooner if medically necessary, to reassess this patient's status. Reported by: GUILLAUME on 01/21/2025 10:45:00 AM. Reviewed, dictated and finalized at location A.
== END 2025-01-21 09:56 | disposition home or self-care (01) ==
LOC: ANHFOHIMG 09:58
PROVIDERS: PCP Internal Medicine; Visit Provider Internal Medicine Endocrinology, Diabetes & Metabolism
DX: M85.89 Other specified disorders of bone density and structure, multiple sites (principal); Z78.0 Asymptomatic menopausal state; M81.0 Age-related osteoporosis without current pathological fracture
CPT/HCPCS: 77080

== ENCOUNTER 2025-01-27 00:06 | Day surgery (SDC) | payer MEDICARE, OTHER, SELFPAY ==
[2025-01-15 14:08] VITALS: BMI 32.1
[2025-01-27 06:29] VITALS: BP 96/59; PULSE 122; RESP 18; TEMP 36.1; O2SAT 98
[2025-01-27] MEDS: LACTATED RINGERS 1,000 ML 150 ML IV CONT (06:39)
--- NOTE | 2025-01-27 06:54 | WPDANESEPPF ---
Anes - Initial Pre Proc Eval Procedure: Operation Date: 01/27/25 07:30 Proposed Procedures p Screening Colonoscopy - Oswald Ga MD Date/Time: 01/27/25 06:54 Surgeon: Oswald Ga MD Pre Op Diagnosis: Personal history of colon polyps, unspecified Patient Data Age: 74 Gender: F Height: 1.56 m Weight: 75.7 kg Last Vital Signs Temp 36.1 C L 01/27/25 06:29 Pulse 122 H 01/27/25 06:29 Resp 18 01/27/25 06:29 BP 96/59 L 01/27/25 06:29 Pulse Ox 98 01/27/25 06:29 O2 Del Method Room Air 01/27/25 06:29 Allergies Allergy/AdvReac Type Severity Reaction Status Date / Time Penicillins Allergy Unknown Swelling Verified 01/27/25 06:26 Sulfa (Sulfonamide Allergy Unknown Swelling Verified 01/27/25 06:26 Antibiotics) sulfamerazine Allergy Unknown SWELLING Verified 01/27/25 06:26 Home Medications ?Medication ?Instructions ?Recorded ?Confirmed ?Type blood-glucose meter (Accu-Chek #1 ea 07/21/19 01/21/25 Rx Khadra Plus Meter) lancets (Accu-Chek Multiclix #100 ea 11/09/19 01/21/25 Rx Lancet) blood sugar diagnostic (Accu-Chek #100 ea 02/10/20 01/21/25 Rx Khadra Plus test strips) vitamin B complex (B 1 tablet PO DAILY #90 tabs 05/09/21 01/21/25 Rx Complex-Vitamin B12 tablet) calcium ER 600 mg (as carb,cit)-D3 1 tablet PO BIDWMEAL 90 days #180 11/30/21 01/21/25 Rx 12.5 mcg (500 unit) tablet, tabs ext.rel (Citracal-D3 Slow Release) tramadol 50 mg tablet 50 mg PO BID PRN pain #60 tabs 06/17/23 01/21/25 Rx duloxetine 60 mg capsule,delayed 60 mg PO DAILY #90 caps 04/20/24 01/21/25 Rx release glucagon 3 mg/actuation nasal 3 mg intranasal ONCE PRN 04/20/24 01/21/25 Rx spray (Baqsimi) hypoglycemia #1 ea alendronate 70 mg tablet (Fosamax) 70 mg PO WEEKLY #14 tabs 08/26/24 01/21/25 Rx ondansetron 4 mg disintegrating 4 mg PO Q6H PRN nausea and 01/15/25 01/21/25 Rx tablet vomiting #4 tabs blood-glucose sensor (Dexcom G7 #10 ea 01/21/25 01/21/25 Rx Sensor device) dapagliflozin propanediol 10 mg 10 mg PO DAILY #90 tabs 01/21/25 01/27/25 Rx tablet (Farxiga) glimepiride 4 mg tablet 4 mg PO DAILY PRN for big 01/21/25 01/21/25 Rx carbohydrate meal #90 tabs icosapent ethyl 1 gram capsule 2 g (2 x 1 gram) PO BID #360 caps 01/21/25 01/21/25 Rx (Vascepa) lisinopril 20 mg tablet 20 mg PO DAILY #90 tabs 01/21/25 01/27/25 Rx mecobalamin (vitamin B12) 5,000 5,000 mcg PO DAILY #90 tabs 01/21/25 01/21/25 Rx mcg chewable tablet metformin 1,000 mg tablet 1,000 mg PO DAILY #90 tabs 01/21/25 01/27/25 Rx rosuvastatin 40 mg tablet 40 mg PO DAILY #90 tabs 01/21/25 01/21/25 Rx tirzepatide 10 mg/0.5 mL 10 mg (0.5 mL) subcut WEEKLY #6 mL 01/21/25 01/21/25 Rx subcutaneous pen injector (Mounjaro) Laboratory Tests 01/27/25 06:35 POC Capillary Glucose 173 H mg/dl (65-105) Patient hx anesthesia problems: none Family hx anesthesia problems: none Results Review: All pre-operative results and documents have been reviewed as part of the pre-operative evaluation. [facility]LY [facility] Past Medical History Medical History Osteopenia after menopause Vitamin D deficiency Vitamin B12 deficiency Type 2 diabetes mellitus with hyperglycemia, without long-term current use of insulin BMI over 35 Hypertriglyceridemia Uncontrolled type 2 diabetes mellitus with hyperglycemia Obesity Diabetes Depression Surgical History Surgical History History of shoulder surgery H/O: hysterectomy Family History Family History Mother Diabetes mellitus Family history of chronic obstructive pulmonary disease Family history of congestive heart failure Hypertension Family history of diabetes mellitus in first degree relative Sibling Diabetes mellitus Hypertension Patient's sister is in good health Patient's brother is , Onset Age: 29 Family history of kidney disease Family history of diabetes mellitus in first degree relative Family history of coronary artery disease Father Family history of malignant neoplasm Family history of kidney disease, Onset Age: 55 Other Alcoholism Arthritis CHF (congestive heart failure), NYHA class I COPD (chronic obstructive pulmonary disease) Cancer Cerebrovascular accident Glaucoma Lung disease Osteoporosis Renal failure SOB (shortness of breath) Social History Social History Smoking status: Never smoker Second hand tobacco smoke exposure: Yes Smoking end date: 03/18/71 Alcohol intake: never Substance use type: does not use Lack of Transportation: No Lack of Food: Never True Current Housing: I Have Housing Concerned About Future Housing: No Difficulty Paying Gas/Electric Bills: No Difficulty Paying for Meds: No Currently Unemployed: No Education: Trade/Vocational Certificate Difficulty w/ Childcare or Family Care: No Living arrangements: with family Anes - Eval Final PreProcedure Day of Procedure 01/27/25 06:54 Patient weight: obese Heart: regular rate and rhythm Lungs: clear to auscultation Airway: Mallampati scale class II Neurological: alert and oriented Last oral intake: >/= 8 hours ASA classification: III Emergent: no Anesthetic plan: proceed Anesthesia type and monitoring: general GIVS and standard monitoring Results Review: All pre-operative results and documents have been reviewed as part of the pre-operative evaluation. Informed Consent: The patient's anesthetic plan and its attendant risks and benefits were discussed with the patient/family/POA. Questions were solicited and answers provided to the satisfaction of the patient/family/POA.
--- NOTE | 2025-01-27 07:30 | PM.IMHP ---
H&P: HPI History of Present Illness Date/Time: 01/27/25 07:30 Chief Complaint: History of colon polyps Narrative: The patient has a history of colonic polyps, the last colonoscopy was 5 years ago. Years ago she had a large polyp that needed special advanced resection at [place]. Review of Systems Review of Systems: All systems reviewed & are unremarkable except as noted in HPI and below PMFSH Past Medical History Medical History Osteopenia after menopause Vitamin D deficiency Vitamin B12 deficiency Type 2 diabetes mellitus with hyperglycemia, without long-term current use of insulin BMI over 35 Hypertriglyceridemia Uncontrolled type 2 diabetes mellitus with hyperglycemia Obesity Diabetes Depression Surgical History Surgical History History of shoulder surgery H/O: hysterectomy Family History Family History Mother Diabetes mellitus Family history of chronic obstructive pulmonary disease Family history of congestive heart failure Hypertension Family history of diabetes mellitus in first degree relative Sibling Diabetes mellitus Hypertension Patient's sister is in good health Patient's brother is , Onset Age: 29 Family history of kidney disease Family history of diabetes mellitus in first degree relative Family history of coronary artery disease Father Family history of malignant neoplasm Family history of kidney disease, Onset Age: 55 Other Alcoholism Arthritis CHF (congestive heart failure), NYHA class I COPD (chronic obstructive pulmonary disease) Cancer Cerebrovascular accident Glaucoma Lung disease Osteoporosis Renal failure SOB (shortness of breath) Social History Social History Smoking status: Never smoker Second hand tobacco smoke exposure: Yes Smoking end date: 03/18/71 Alcohol intake: never Substance use type: does not use Lack of Transportation: No Lack of Food: Never True Current Housing: I Have Housing Concerned About Future Housing: No Difficulty Paying Gas/Electric Bills: No Difficulty Paying for Meds: No Currently Unemployed: No Education: Trade/Vocational Certificate Difficulty w/ Childcare or Family Care: No Living arrangements: with family Meds Home Medications and Allergies Home Medications ?Medication ?Instructions ?Recorded ?Confirmed ?Type blood-glucose meter (Accu-Chek #1 ea 07/21/19 01/21/25 Rx Khadra Plus Meter) lancets (Accu-Chek Multiclix #100 ea 11/09/19 01/21/25 Rx Lancet) blood sugar diagnostic (Accu-Chek #100 ea 02/10/20 01/21/25 Rx Kahdra Plus test strips) vitamin B complex (B 1 tablet PO DAILY #90 tabs 05/09/21 01/21/25 Rx Complex-Vitamin B12 tablet) calcium ER 600 mg (as carb,cit)-D3 1 tablet PO BIDWMEAL 90 days #180 11/30/21 01/21/25 Rx 12.5 mcg (500 unit) tablet, tabs ext.rel (Citracal-D3 Slow Release) tramadol 50 mg tablet 50 mg PO BID PRN pain #60 tabs 06/17/23 01/21/25 Rx duloxetine 60 mg capsule,delayed 60 mg PO DAILY #90 caps 04/20/24 01/21/25 Rx release glucagon 3 mg/actuation nasal 3 mg intranasal ONCE PRN 04/20/24 01/21/25 Rx spray (Baqsimi) hypoglycemia #1 ea alendronate 70 mg tablet (Fosamax) 70 mg PO WEEKLY #14 tabs 08/26/24 01/21/25 Rx ondansetron 4 mg disintegrating 4 mg PO Q6H PRN nausea and 01/15/25 01/21/25 Rx tablet vomiting #4 tabs blood-glucose sensor (Dexcom G7 #10 ea 01/21/25 01/21/25 Rx Sensor device) dapagliflozin propanediol 10 mg 10 mg PO DAILY #90 tabs 01/21/25 01/27/25 Rx tablet (Farxiga) glimepiride 4 mg tablet 4 mg PO DAILY PRN for big 01/21/25 01/21/25 Rx carbohydrate meal #90 tabs icosapent ethyl 1 gram capsule 2 g (2 x 1 gram) PO BID #360 caps 01/21/25 01/21/25 Rx (Vascepa) lisinopril 20 mg tablet 20 mg PO DAILY #90 tabs 01/21/25 01/27/25 Rx mecobalamin (vitamin B12) 5,000 5,000 mcg PO DAILY #90 tabs 01/21/25 01/21/25 Rx mcg chewable tablet metformin 1,000 mg tablet 1,000 mg PO DAILY #90 tabs 01/21/25 01/27/25 Rx rosuvastatin 40 mg tablet 40 mg PO DAILY #90 tabs 01/21/25 01/21/25 Rx tirzepatide 10 mg/0.5 mL 10 mg (0.5 mL) subcut WEEKLY #6 mL 01/21/25 01/21/25 Rx subcutaneous pen injector (Mountero) Allergies Allergy/AdvReac Type Severity Reaction Status Date / Time Penicillins Allergy Unknown Swelling Verified 01/27/25 06:26 Sulfa (Sulfonamide Allergy Unknown Swelling Verified 01/27/25 06:26 Antibiotics) sulfamerazine Allergy Unknown SWELLING Verified 01/27/25 06:26 Vital Signs Vital Signs - 24 hr 01/27/25 06:29 Temperature 97 F L Pulse Rate 122 H Respiratory Rate 18 Blood Pressure 96/59 L Pulse Oximetry 98 Oxygen Delivery Room Air Exam Const: General: cooperative and healthy appearing Resp: Effort & Inspection: normal respiratory effort and able to speak in complete sentences Auscultation: clear to auscultation bilaterally Cardio: Rate: regular rate Rhythm: regular rhythm GI: Inspection: normal to inspection GI Palp: No No hepatosplenomegaly present Auscultation: normal bowel sounds Rectal Exam: deferred Skin: General skin exam: normal color Psych: Appearance: grossly normal Mental Status: mental status grossly normal Assessment and Plan Assessment and plan (1) History of colonic polyps: Code(s): Z86.0100 - Personal history of colon polyps, unspecified Status: Acute Assessment and Plan: The patient is deemed a good candidate for the procedure. Consent signed. Will proceed.
--- NOTE | 2025-01-27 07:50 | S_PTH ---
PATIENT: Ellie Rivera LOC: [facility] U#:[id number] AGE/SX: 74/F ROOM: RE01/27/[address]: Oswald Ga MD : 1950 BED: DIS: 01/27/2025 SPEC #: [id number] RECD: 01/27/25 11:06 STATUS: SIRENA REMatilde #: [id number] JOSE: 01/27/25 07:[address]: Oswald Ga DEPT: [facility] Surgical RECD BY: Tash Kay ENTERED: 01/27/25 11:10 SP TYPE: Surgical OTHR DR: Christian Michael, Tissues: A - Colon Polypectomy B - Colon Polypectomy Procedures: Hematoxylin and Eosin Stain Gross and Microscopic Level 4
[2025-01-27 07:52] VITALS: BP 97/59; PULSE 89; RESP 22; O2SAT 98
[2025-01-27 08:02] VITALS: BP 96/70; PULSE 83; RESP 19; O2SAT 99
[2025-01-27 08:12] VITALS: BP 106/66; PULSE 85; RESP 25; O2SAT 100
== END 2025-01-27 08:30 | disposition home or self-care (01) ==
PROVIDERS: PCP Internal Medicine; Referring Provider Nurse Practitioner; Visit Provider Internal Medicine Gastroenterology
PROC: 0DJD8ZZ Inspection of Lower Intestinal Tract, Via Natural or Artificial Opening Endoscopic (ICD-10-PCS; CPT 45378; principal; 2025-01-27 07:30)
DX: Z12.11 Encounter for screening for malignant neoplasm of colon (principal); K63.5 Polyp of colon; K62.1 Rectal polyp; K57.30 Diverticulosis of large intestine without perforation or abscess without bleeding; K64.8 Other hemorrhoids; E11.9 Type 2 diabetes mellitus without complications; E66.9 Obesity, unspecified; Z68.31 Body mass index [BMI] 31.0-31.9, adult
CPT/HCPCS: 45385; 82948; 88305; J2003; J2704; J7120

== ENCOUNTER 2025-03-17 07:27 | Outpatient (CLI) | payer MEDICARE, OTHER, SELFPAY ==
--- NOTE | ~2025-03-17 | MM_ITS ---
EXAMINATION: MM screening nelson BI w renetta HISTORY: Screening TECHNIQUE: Craniocaudal and mediolateral oblique 3-D tomosynthesis images were obtained and synthetic 2-D images were generated. CAD analysis was submitted and interpreted. COMPARISON: 2022 BREAST PARENCHYMAL COMPOSITION: There are scattered areas of fibroglandular tissue. FINDINGS: No suspicious masses are seen. There are no suspicious calcifications. No unexplained architectural distortion is seen. There are no skin or nipple abnormalities identified. There is no adenopathy seen on the images submitted. IMPRESSION: No mammographic evidence to suggest malignancy is seen. The patient may return to screening mammography as per ACR guidelines. BI-RADS 1 - Negative. Reviewed, dictated and finalized at location [facility]
== END 2025-03-17 07:28 | disposition home or self-care (01) ==
LOC: ANHFOHIMG 07:31
PROVIDERS: PCP Nurse Practitioner; Referring Provider Internal Medicine Endocrinology, Diabetes & Metabolism; Visit Provider Nurse Practitioner
DX: Z12.31 Encounter for screening mammogram for malignant neoplasm of breast (principal)
CPT/HCPCS: 77063; 77067